=== PATIENT | male | born 1960 | race Caucasian/White ===

== ENCOUNTER 2016-11-17 09:40 | Emergency (ER) | payer OTHER ==
[2016-11-17 09:45] VITALS: BP 136/81; PULSE 64; TEMP 97.9; BMI 26.6
--- NOTE | 2016-11-17 11:22 | PDOC ---
History of Present Illness - General Chief Complaint: Pain, Acute Stated Complaint: PAIN Time Seen by Provider: 11/17/16 10:54 History Source: Patient Exam Limitations: No Limitations - History of Present Illness Initial Comments: 11/17/16 11:26 Came to emergency department with red, hot, swollen right foot at first MTP. Patient denies history or knowledge of gout but worries may be so. Denies trauma , denies any recent chest exercise changes, heavy lifting. 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 11/17/16 18:56 Occurred: reports: just prior to arrival Severity: reports: mild, moderate Pain Location: reports: lower extremity (right foot ) Method of Injury: Yes: unknown Loss of Consciousness: no loss of consciousness Associated Symptoms (Fall): denies symptoms Past History - Travel Traveled outside of the country in the last 30 days: No Close contact w/someone who was outside of country & ill: No - Past Medical History Allergies/Adverse Reactions: Allergies Allergy/AdvReac Type Severity Reaction Status Date / Time No Known Drug Allergies Allergy Verified 11/17/16 09:45 Home Medications: Ambulatory Orders Clopidogrel Bisulfate [Clopidogrel] 75 mg PO ASDIR 11/17/16 Indomethacin [Indocin -] 50 mg PO TID #21 capsule 11/17/16 Lisinopril 5 mg PO 11/17/16 Metoprolol Tartrate 25 mg PO ASDIR 11/17/16 Anemia: No Asthma: No Cancer: No Cardiac Disorders: No CVA: No COPD: No CHF: No Dementia: No Diabetes: No GI Disorders: No Disorders: No HTN: No Hypercholesterolemia: No Liver Disease: No Seizures: No Thyroid Disease: No - Surgical History Cardiac Surgery: Yes (STENT) - Psycho/Social/Smoking Cessation Hx Suicidal Ideation: No Smoking History: Current every day smoker Have you smoked in the past 12 months: Yes Number of Cigarettes Smoked Daily: 10 Information on smoking cessation initiated: No 'Breaking Loose' booklet given: 06/08/15 Hx Alcohol Use: No Drug/Substance Use Hx: No Hx Substance Use Treatment: No Trauma Specific PMHX - Complaint Specific PMHX Back Injury: No Neck Injury: No Review of Systems - Review of Systems Able to Perform ROS?: Yes Is the patient limited Italian proficient: Yes Constitutional: Yes: Symptoms Reported, See HPI. No: Fever HEENTM: Yes: See HPI. No: Symptoms Reported Respiratory: No: Symptoms reported Musculoskeletal: Yes: Symptoms Reported, See HPI, Joint Pain Integumentary: Yes: Symptoms Reported, See HPI, Erythema (right foot dorsum and MTP of first digit). No: Rash Neurological: Yes: See HPI. No: Symptoms reported, Numbness All Other Systems: Reviewed and Negative *Physical Exam - Vital Signs Last Vital Signs Temp Pulse Resp BP Pulse Ox 97.9 F 64 18 136/81 110 H 11/17/16 09:42 11/17/16 09:42 11/17/16 09:42 11/17/16 09:42 11/17/16 09:42 - Physical Exam General Appearance: Yes: Nourished, Appropriately Dressed, Apparent Distress, Mild Distress HEENT: positive: SOFÍA, Normal ENT Inspection, TMs Normal, Pharynx Normal Neck: negative: Tender Respiratory/Chest: positive: Lungs Clear Extremity: positive: Normal Capillary Refill, Normal Range of Motion (but painful to flex and extend toes ), Tender, Swelling, Erythema. negative: Normal Inspection Integumentary: positive: Dry, Warm, Erythema (to left first metatarsal). negative: Normal Color Neurologic: positive: realtime captioner II-XII NML intact, Fully Oriented, Alert, Normal Mood/ Affect, Normal Response, Motor Strength 5/5 Progress Note - Progress Note Progress Note: Gout left foot, we'll treat with NSAIDs/Indocin and have follow-up with PMD *DC/Admit/Observation/Transfer Diagnosis at time of Disposition: Gout attack Qualifiers: Gout site: foot Gout etiology: unspecified cause Laterality: left Qualified Code(s): M10.9 - Gout, unspecified - Discharge Dispostion Disposition: HOME Condition at time of disposition: Stable Admit: No - Prescriptions Prescriptions: Indomethacin [Indocin -] 50 mg PO TID #21 capsule - Referrals Referrals: Galen Carmen MD [Primary Care Provider] - - Patient Instructions Printed Discharge Instructions: DI for Gout Additional Instructions: Rest, ice to area on and off for 15 minutes 4-6 times a day Avoid heavy lifting or exercise until pain and swelling is resolved or until further directed Keep area highly elevated to reduce swelling Use splints/Marco wrap as directed Followup with orthopedist in one to 2 days if not improving, if significantly improved may wait one week for followup with orthopedist May use ibuprofen 2-200 mg tablets every 6 hours as needed for pain - Post Discharge Activity Work/School Note: Back to Work
[2016-11-17] MEDS ORDERED: KETOROLAC TROMETHAMINE 60 MG/2 ML VIAL IM ONE (11:33)
--- NOTE | 2016-11-17 11:43 | PDOC ---
History of Present Illness - General Chief Complaint: Pain, Acute Stated Complaint: PAIN Time Seen by Provider: 11/17/16 10:54 History Source: Patient Exam Limitations: No Limitations Past History - Past Medical History Allergies/Adverse Reactions: Allergies Allergy/AdvReac Type Severity Reaction Status Date / Time No Known Drug Allergies Allergy Verified 11/17/16 09:45 Home Medications: Ambulatory Orders Clopidogrel Bisulfate [Clopidogrel] 75 mg PO ASDIR 11/17/16 Indomethacin [Indocin -] 50 mg PO TID #21 capsule 11/17/16 Lisinopril 5 mg PO 11/17/16 Metoprolol Tartrate 25 mg PO ASDIR 11/17/16 Anemia: No Asthma: No Cancer: No Cardiac Disorders: No CVA: No COPD: No CHF: No Dementia: No Diabetes: No GI Disorders: No Disorders: No HTN: No Hypercholesterolemia: No Liver Disease: No Seizures: No Thyroid Disease: No - Surgical History Cardiac Surgery: Yes (STENT) - Psycho/Social/Smoking Cessation Hx Suicidal Ideation: No Smoking History: Current every day smoker Have you smoked in the past 12 months: Yes Number of Cigarettes Smoked Daily: 10 Information on smoking cessation initiated: No 'Breaking Loose' booklet given: 06/08/15 Hx Alcohol Use: No Drug/Substance Use Hx: No Hx Substance Use Treatment: No *Physical Exam - Vital Signs Last Vital Signs Temp Pulse Resp BP Pulse Ox 97.9 F 64 18 136/81 110 H 11/17/16 09:42 11/17/16 09:42 11/17/16 09:42 11/17/16 09:42 11/17/16 09:42 *DC/Admit/Observation/Transfer Diagnosis at time of Disposition: Gout attack Qualifiers: Gout site: foot Gout etiology: unspecified cause Laterality: left Qualified Code(s): M10.9 - Gout, unspecified - Discharge Dispostion Disposition: HOME Condition at time of disposition: Stable - Prescriptions Prescriptions: Indomethacin [Indocin -] 50 mg PO TID #21 capsule - Referrals Referrals: Galen Carmen MD [Primary Care Provider] - - Patient Instructions Printed Discharge Instructions: DI for Gout Additional Instructions: Rest, ice to area on and off for 15 minutes 4-6 times a day Avoid heavy lifting or exercise until pain and swelling is resolved or until further directed Keep area highly elevated to reduce swelling Use splints/Marco wrap as directed Followup with orthopedist in one to 2 days if not improving, if significantly improved may wait one week for followup with orthopedist May use ibuprofen 2-200 mg tablets every 6 hours as needed for pain - Post Discharge Activity Work/School Note: Back to Work
== END 2016-11-17 11:51 | disposition home or self-care (01) ==
LOC: JERFT 09:40
PROC: 3E0233Z Introduction of Anti-inflammatory into Muscle, Percutaneous Approach (ICD-10-PCS; principal; 2016-11-17)
DX: M10.9 Gout, unspecified (principal); I25.10 Atherosclerotic heart disease of native coronary artery without angina pectoris; F17.210 Nicotine dependence, cigarettes, uncomplicated; Z95.5 Presence of coronary angioplasty implant and graft
CPT/HCPCS: 96372; 99281-25

== ENCOUNTER 2021-10-02 13:27 | Emergency (ER) | payer OTHER ==
[2021-10-02 13:35] VITALS: TEMP 97.5; BMI 25.1
[2021-10-02] MEDS ORDERED: KETOROLAC TROMETHAMINE 30 MG/1 ML VIAL IM ONE (14:25)
[2021-10-02] MEDS ORDERED: LIDOCAINE 5% TOPICAL PATCH TP ONE (14:26)
[2021-10-02] MEDS ORDERED: LIDOCAINE 5% TOPICAL PATCH ONE (14:37)
[2021-10-02] MEDS ORDERED: KETOROLAC TROMETHAMINE 30 MG/1 ML VIAL ONE (14:37)
[2021-10-02 16:21] VITALS: BP 135/84; PULSE 72
[2021-10-02] MEDS ORDERED: LIDOCAINE PATCH REMOVAL MC ONE (22:00)
== END 2021-10-02 16:22 | disposition home or self-care (01) ==
LOC: JER 13:27 → JERFT 13:27
PROC: 3E023GC Introduction of Other Therapeutic Substance into Muscle, Percutaneous Approach (ICD-10-PCS; principal; 2021-10-02)
DX: M54.2 Cervicalgia (principal); S46.812A Strain of other muscles, fascia and tendons at shoulder and upper arm level, left arm, initial encounter; Y99.9 Unspecified external cause status
CPT/HCPCS: 72050-TC-FY; 73030-TC-LT-FY; 93005; 93010; 99284-25